=== PATIENT | male | born 1990 ===

== ENCOUNTER 2017-03-25 11:37 | Emergency (ER) | payer SELFPAY ==
[2017-03-25 11:41] VITALS: BP 109/63; PULSE 112; RESP 20; TEMP 99; O2SAT 99; BMI 24.3
--- NOTE | 2017-03-25 12:49 | ED PDOC ---
HPI: Psych/Substance Abuse Time Seen by Provider: 03/25/17 11:54 Chief Complaint (Nursing): Substance Abuse Chief Complaint (Provider): Heroin abuse History Per: Patient History/Exam Limitations: no limitations Onset/Duration Of Symptoms: Hrs Current Symptoms Are (Timing): Still Present Additional Complaint(s): 26 yo male with no medical problems presents after using heroin. PT states he was using with his brother who OD and was brought to another ER. Pt sleepy but abusable to verbal commands. Past Medical History Reviewed: Historical Data, Nursing Documentation, Vital Signs Vital Signs: Last Vital Signs Temp 99 F 03/25/17 11:39 Pulse 112 H 03/25/17 11:39 Resp 20 03/25/17 11:39 BP 109/63 03/25/17 11:39 Pulse Ox 99 03/25/17 11:39 - Medical History PMH: No Chronic Diseases - Surgical History Surgical History: No Surg Hx - Family History Family History: States: No Known Family Hx - Living Arrangements Living Arrangements: With Family - Social History Current smoker - smoking cessation education provided: No - Allergies Allergies/Adverse Reactions: Allergies Allergy/AdvReac Type Severity Reaction Status Date / Time No Known Allergies Allergy Verified 03/25/17 11:51 Review of Systems ROS Statement: Except As Marked, All Systems Reviewed And Found Negative Psych: Negative for: Depression, Suicidal ideation, Withdrawal Physical Exam - Reviewed Nursing Documentation Reviewed: Yes Vital Signs Reviewed: Yes - Physical Exam Appears: Positive for: Well, Non-toxic, No Acute Distress Head Exam: Positive for: ATRAUMATIC, NORMAL INSPECTION, NORMOCEPHALIC Skin: Positive for: Normal Color, Warm, DRY Eye Exam: Positive for: Normal appearance, PERRL. Negative for: EOMI ([place]) ENT: Positive for: Normal ENT Inspection Neck: Positive for: Normal, Painless ROM Cardiovascular/Chest: Positive for: Regular Rate, Rhythm Respiratory: Positive for: Normal Breath Sounds. Negative for: Accessory Muscle Use, Respiratory Distress Gastrointestinal/Abdominal: Positive for: Normal Exam, Bowel Sounds, Soft. Negative for: Tenderness Back: Positive for: Normal Inspection Extremity: Positive for: Normal ROM Neurologic/Psych: Positive for: Alert, Oriented - ECG O2 Sat by Pulse Oximetry: 99 Medical Decision Making Medical Decision Makin - Pt ambulates to restroom with steady gait. 1340 - Pt monitored in ER. Clear speech. Alert, oriented. Stable vitals. Disposition - Clinical Impression Clinical Impression: Opiate abuse, continuous - Patient ED Disposition Is Patient to be Admitted: No Counseled Patient/Family Regarding: Diagnosis, Need For Followup - Disposition Disposition: Routine/Home Disposition Time: 13:34 Condition: GOOD Instructions: Narcotic Abuse (ED) Forms: [employer] (Armenian)
== END 2017-03-25 13:53 | disposition home or self-care (01) ==
LOC: H.ER 11:37
DX: F11.10 Opioid abuse, uncomplicated (principal)

== ENCOUNTER 2018-02-27 16:54 | Emergency (ER) | payer OTHER ==
[2018-02-27 16:54] VITALS: BMI 24.3
[2018-02-27 17:02] VITALS: O2SAT 99
--- NOTE | 2018-02-27 18:36 | ED PDOC ---
HPI: Psych/Substance Abuse Time Seen by Provider: 02/27/18 17:44 Chief Complaint (Nursing): Substance Abuse Chief Complaint (Provider): Substance Abuse History Per: Patient, EMS History/Exam Limitations: no limitations Onset/Duration Of Symptoms: Hrs Current Symptoms Are (Timing): Still Present Modifying Factor(s): Narcotics Associated Symptoms: denies: Suicidal Thoughts, Suicidal Plan Additional Complaint(s): Onel Arce is a 27 year old male with a history of IV heroin abuse who was brought to the ED by EMS for evaluation of heroin use onset prior to arrival. Patient states that he used one bag on heroin today and was walking on the street when territory sales representative saw him and felt like he needed to be taken to the hospital. He reports that he was awake and speaking normally with no complaints at the time. Patient continues to deny any physical complaints, suicidal/homicidal ideation, and auditory/visual hallucinations. He states that he feels well and would like to leave, and denies any history of asthma, depression, or schizophrenia. PMD: none provided Past Medical History Reviewed: Historical Data, Nursing Documentation, Vital Signs Vital Signs: Last Vital Signs Temp 98.4 F 02/27/18 17:01 Pulse 90 02/27/18 17:01 Resp 18 02/27/18 17:01 BP 146/87 02/27/18 17:01 Pulse Ox 99 02/27/18 17:01 - Medical History PMH: No Chronic Diseases Denies: Asthma, Depression, Schizophrenia - Surgical History Surgical History: No Surg Hx - Family History Family History: States: Unknown Family Hx - Social History Current smoker - smoking cessation education provided: No Alcohol: Social Drugs: Opiates - Home Medications Home Medications: Ambulatory Orders Medication Instructions Recorded Naloxone HCl [Narcan] 4 mg NS ONCE PRN #1 spray 02/27/18 - Allergies Allergies/Adverse Reactions: Allergies Allergy/AdvReac Type Severity Reaction Status Date / Time No Known Allergies Allergy Verified 02/27/18 16:56 Review of Systems ROS Statement: Except As Marked, All Systems Reviewed And Found Negative Psych: Negative for: Suicidal ideation, Other (no homicidal ideatiom, no auditory/visual hallucinations ) Physical Exam - Reviewed Nursing Documentation Reviewed: Yes Vital Signs Reviewed: Yes - Physical Exam Appears: Positive for: Non-toxic, No Acute Distress Head Exam: Positive for: ATRAUMATIC, NORMAL INSPECTION, NORMOCEPHALIC Skin: Positive for: Normal Color, Warm, DRY Eye Exam: Positive for: EOMI, PERRL, Conjunctival injection (mild bilaterally) Cardiovascular/Chest: Positive for: Regular Rate, Rhythm. Negative for: Murmur Respiratory: Positive for: Normal Breath Sounds. Negative for: Respiratory Distress Neurologic/Psych: Positive for: Alert, Oriented, Gait (steady), Other (speaking full sentences with no slurred speech). Negative for: Motor/Sensory Deficits - ECG O2 Sat by Pulse Oximetry: 99 Medical Decision Making Medical Decision Making: Time: 17:50 Patient will be discharged with prescription for nasal narcan and referral to detoxification clinics. Scribe Attestation: Documented by Shayla Yo, acting as a scribe for Caro Abrams PA-C. Provider Scribe Attestation: All medical record entries made by the Scribe were at my direction and personally dictated by me. I have reviewed the chart and agree that the record accurately reflects my personal performance of the history, physical exam, medical decision making, and the department course for this patient. I have also personally directed, reviewed, and agree with the discharge instructions and disposition. Disposition - Clinical Impression Clinical Impression: Opiate abuse, continuous - Disposition Referrals: [facility] [employer] [facility] [Outside] [facility] [Outside] Disposition: Routine/Home Disposition Time: 18:50 Condition: STABLE Additional Instructions: Please refer to information provided for help with detox. Return to ER if you have thoughts of hurting yourself. Prescriptions: Naloxone HCl [Narcan] 4 mg NS ONCE PRN #1 spray PRN Reason: overdose Instructions: Drug Abuse and Drug Addiction (DC) Forms: [employer] (Luxembourgish) Print Language: ECUADOREAN
[2018-02-27 18:55] VITALS: BP 138/74; PULSE 84; RESP 16; TEMP 97.4
== END 2018-02-27 19:10 | disposition home or self-care (01) ==
LOC: H.ER 16:54
DX: F11.10 Opioid abuse, uncomplicated (principal)

== ENCOUNTER 2018-03-07 14:06 | Emergency (ER) | payer SELFPAY ==
[2018-03-07 14:07] VITALS: BMI 24.3
[2018-03-07 14:28] VITALS: BP 123/74; PULSE 101; RESP 20; TEMP 98; O2SAT 95
[2018-03-07] MEDS ORDERED: Naloxone 0.4 mg/ml Inj (Adult) IM STA (14:32)
--- NOTE | 2018-03-07 15:08 | ED PDOC ---
HPI: Psych/Substance Abuse Time Seen by Provider: 03/07/18 14:31 Chief Complaint (Nursing): Substance Abuse Chief Complaint (Provider): Heroine use History Per: Patient History/Exam Limitations: no limitations Onset/Duration Of Symptoms: Days (today) Additional Complaint(s): Pt. with heroine use. Was sitting on the bench and seen by police as sleepy. Denies being suicidal or homicidal. No other drugs or etoh. Uses daily and is looking to get help. No pain, weakness, headaches, dizziness, fever, cough. Past Medical History Reviewed: Nursing Documentation, Vital Signs Vital Signs: Last Vital Signs Temp 98.0 F 03/07/18 14:26 Pulse 101 H 03/07/18 14:26 Resp 20 03/07/18 14:26 BP 123/74 03/07/18 14:26 Pulse Ox 95 03/07/18 14:26 - Medical History PMH: Denies: Asthma, Depression, Schizophrenia - Surgical History Surgical History: No Surg Hx - Family History Family History: States: Unknown Family Hx - Living Arrangements Living Arrangements: With Family - Social History Alcohol: None Drugs: Opiates - Home Medications Home Medications: Ambulatory Orders Medication Instructions Recorded Naloxone HCl [Narcan] 4 mg NS ONCE PRN #1 spray 02/27/18 - Allergies Allergies/Adverse Reactions: Allergies Allergy/AdvReac Type Severity Reaction Status Date / Time No Known Allergies Allergy Verified 02/27/18 16:56 Review of Systems ROS Statement: Except As Marked, All Systems Reviewed And Found Negative Physical Exam - Reviewed Nursing Documentation Reviewed: Yes Vital Signs Reviewed: Yes - Physical Exam Appears: Positive for: Non-toxic, No Acute Distress Head Exam: Positive for: ATRAUMATIC, NORMAL INSPECTION, NORMOCEPHALIC Skin: Positive for: Normal Color, Warm, DRY Eye Exam: Positive for: EOMI, Normal appearance, PERRL ENT: Positive for: Normal ENT Inspection Neck: Positive for: Normal, Painless ROM, Supple Cardiovascular/Chest: Positive for: Regular Rate, Rhythm Respiratory: Positive for: CNT, Normal Breath Sounds Gastrointestinal/Abdominal: Positive for: Normal Exam, Soft. Negative for: Tenderness Back: Positive for: Normal Inspection. Negative for: L CVA Tenderness, R CVA Tenderness Extremity: Positive for: Normal ROM. Negative for: Tenderness Neurologic/Psych: Positive for: Alert, Oriented - ECG O2 Sat by Pulse Oximetry: 95 Pulse Ox Interpretation: Normal - Progress ED Course And Treament: 1509: Stable. Tolerated PO. Fu with pcp. AAOx3. Ambulated with no issues. Has capacity to make decisions. Disposition - Clinical Impression Clinical Impression: Opiate abuse, continuous - Patient ED Disposition Is Patient to be Admitted: No Counseled Patient/Family Regarding: Diagnosis, Need For Followup - Disposition Referrals: [facility] [Outside] - 03/08/18 Disposition: Routine/Home Disposition Time: 15:11 Condition: STABLE Additional Instructions: Return if not better in 3 days. Instructions: Opioid Use Disorder
== END 2018-03-07 15:26 | disposition home or self-care (01) ==
LOC: H.ER 14:06
DX: F11.10 Opioid abuse, uncomplicated (principal)